=== PATIENT | female | born 1990 | race Caucasian/White ===

== ENCOUNTER 2019-08-23 23:45 | Inpatient (IN) | payer MEDICAID, BC ==
[~2019-08-23] VITALS: Ht 165.1 cm; Wt 127.0 kg
[2019-08-23] MEDS ORDERED: PREN-196 PO (23:59)
[2019-08-24] MEDS ORDERED: LACTATED RINGERS 1000ML 1,000 ML IV SCH
[2019-08-24] MEDS ORDERED: LACTATED RINGERS 1000ML 1,000 ML IV PRN (00:31)
[2019-08-24 00:35] LABS: APPEARANCE,URINE Cloudy (CLEAR); BILIRUBIN,URINE Negative (NEGATIVE); COLOR,URINE Yellow (YELLOW); GLUCOSE, URINE (UA) Negative (NEGATIVE); KETONES,URINE Negative (NEGATIVE); LEUKOCYTE ESTERASE ,URINE Large (NEGATIVE); NITRATE,URINE Negative (NEGATIVE); OCCULT BLOOD,URINE Large (NEGATIVE); PH,URINE 6.5 (5.0-8.0); PROTEIN,URINE Trace mg/dL (NEGATIVE)
[2019-08-24 00:42] LABS: HEMATOCRIT 30.9 % (36-48); MEAN CORPUSCULAR HGB CONC 34.3 g/dL (32.0-36.0); MEAN CORPUSCULAR VOLUME 87.5 fL (79-99); RED BLOOD CELL COUNT(AUTO) 3.53 MIL/uL (4.00-5.50); RED CELL DISTRIBUTION WIDTH 12.8 % (11.0-15.5); WHITE BLOOD COUNT (AUTO) 18.4 K/uL (4.8-10.8)
[2019-08-24] MEDS ORDERED: OXYTOCIN-LR 20 UNITS/1000 ML 1,000 ML IV SCH (00:45)
[2019-08-24 00:46] LABS: BACTERIA,URINE Moderate /HPF (None Seen); MUCUS,URINE Few LPF (None Seen); SQUAMOUS EPITHELIAL CELL,UR Few /HPF (0-2); WBC,URINE 51-100 /HPF (0-1)
[2019-08-24 00:46] LABS: AMPHET/METH SCREEN,URINE NEGATIVE (NEGATIVE); BARBITURATE SCREEN, URINE NEGATIVE (NEGATIVE); BENZODIAZEPINES SCREEN,URINE NEGATIVE (NEGATIVE); CANNABINOID SCREEN,URINE NEGATIVE (NEGATIVE); COCAINE SCREEN,URINE NEGATIVE (NEGATIVE); OPIATE SCREEN,URINE NEGATIVE (NEGATIVE); PHENCYCLIDINE SCREEN,URINE NEGATIVE (NEGATIVE)
[2019-08-24] MEDS ORDERED: AMPICILLIN 2GM+NS 100ML 100 ML IV ONE (01:05)
[2019-08-24] MEDS ORDERED: AMPICILLIN 2GM+NS 100ML 100 ML IV SCH (01:15)
[2019-08-24] MEDS ORDERED: LACTATED RINGERS 500 ML 500 ML IV PRN (01:15)
[2019-08-24] MEDS ORDERED: ROPIVACAINE 0.2% 100ML VIAL 100 ML EP SCH (01:15)
[2019-08-24] MEDS ORDERED: NALOXONE HCL 0.4 MG/1 ML ML IV PRN (01:15)
[2019-08-24] MEDS ORDERED: EPHEDRINE SULFATE 50 MG/ML AMPULE IVP PRN (01:15)
[2019-08-24 01:43] LABS: RED BLOOD CELL COUNT(AUTO) 3.53 MIL/uL (4.00-5.50); WHITE BLOOD COUNT (AUTO) 18.4 K/uL (4.8-10.8)
[2019-08-24 01:44] LABS: BASOPHILS % (AUTO) 0.1 % (0.0-5.0); EOSINOPHILS % (AUTO) 0.1 % (0.0-8.0); HEMATOCRIT 30.9 % (36-48); LYMPHOCYTES % (AUTO) 8.4 % (21.0-51.0); MEAN CORPUSCULAR HGB CONC 34.3 g/dL (32.0-36.0); MEAN CORPUSCULAR VOLUME 87.5 fL (79-99); MONOCYTES % (AUTO) 7.3 % (3.0-13.0); NEUTROPHILS % (AUTO) 83.5 % (40.0-77.0); PLATELET COUNT (AUTO) 196 K/uL (130-400); RED CELL DISTRIBUTION WIDTH 12.8 % (11.0-15.5)
[2019-08-24 02:00] VITALS: BP 120/88
[2019-08-24] MEDS ORDERED: CEFTRIAXONE SODIUM 1 GM ONE (02:03)
[2019-08-24] MEDS ORDERED: FENTANYL CITRATE PF 50 MCG/1 ML 2ML VIAL ONE (02:06)
[2019-08-24] MEDS ORDERED: AMMONIA 1 EA AMP IH ONE (05:14)
[2019-08-24 06:51] VITALS: BP 124/66
[2019-08-24] MEDS ORDERED: MEASLES/MUMPS/RUBELLA VACCINE, LIVE 0.5 ML/VIAL SQ PRN (07:30)
[2019-08-24] MEDS ORDERED: DIPH,PERTUSS(ACELL),TET VAC/PF 0.5 ML VIAL IM PRN (07:30)
[2019-08-24] MEDS ORDERED: WITCH HAZEL 1 PAD TP PRN (07:30)
[2019-08-24] MEDS ORDERED: ACETAMINOPHEN-CODEINE 300/30MG TAB PO PRN (07:30)
[2019-08-24] MEDS ORDERED: BENZOCAINE/LANOLIN/ALOE VERA 60 ML AEROSOL TP PRN (07:30)
[2019-08-24] MEDS ORDERED: LANOLIN 30GM OINTMENT TP PRN (07:30)
[2019-08-24] MEDS ORDERED: ACETAMINOPHEN 325 MG TAB PO PRN (07:30)
[2019-08-24] MEDS: DOCUSATE SODIUM 100 MG CAP PO SCH (08:59)
[2019-08-24 10:04] LABS: RAPID PLASMA REAGIN NONREACTIVE (NONREACTIVE)
[2019-08-24 10:35] VITALS: BP 103/50
[2019-08-24] MEDS: IBUPROFEN 600 MG TABLET PO PRN (12:43)
[2019-08-24 16:28] VITALS: BP 94/55
[2019-08-24 19:44] VITALS: BP 99/55
[2019-08-24 23:38] VITALS: BP 114/51
[2019-08-25 03:04] VITALS: BP 92/50
[2019-08-25 07:02] LABS: HEMATOCRIT 28.1 % (36-48); MEAN CORPUSCULAR HEMOGLOBIN 29.1 pg (27.0-33.0); MEAN CORPUSCULAR HGB CONC 33.1 g/dL (32.0-36.0); MEAN CORPUSCULAR VOLUME 87.8 fL (79-99); RED BLOOD CELL COUNT(AUTO) 3.2 MIL/uL (4.00-5.50); RED CELL DISTRIBUTION WIDTH 12.9 % (11.0-15.5); WHITE BLOOD COUNT (AUTO) 15.2 K/uL (4.8-10.8)
[2019-08-25 07:40] VITALS: BP 103/57
[2019-08-25] MEDS: IBUPROFEN 600 MG TABLET PO PRN (09:24)
[2019-08-25] MEDS: DOCUSATE SODIUM 100 MG CAP PO SCH ×2 (09:24→21:00)
[2019-08-25 10:10] LABS: HEPATITIS Bs ANTIGEN SCREEN P Negative (Negative)
[2019-08-25 11:41] VITALS: BP 93/53
[2019-08-25 16:06] VITALS: BP 100/52
[2019-08-25 19:36] VITALS: BP 103/66
[2019-08-25] MEDS: AMPICILLIN 1GM+NS 50ML 50 ML IV SCH (21:15)
[2019-08-26 00:18] VITALS: BP 108/56
[2019-08-26 03:43] VITALS: BP 109/57
[2019-08-26] MEDS: AMPICILLIN 1GM+NS 50ML 50 ML IV SCH (05:15)
[2019-08-26 07:23] VITALS: BP 127/59
--- NOTE | 2019-08-26 10:16 | NUR ---
VERN met with pt who is upset and emotional that baby will not be released today as planned. Pt is from [place] and is currently breast feeding baby. Because of covid 19 restrictions, left after and has not been allowed into hospital again. Pt not wanting to leave without baby. Mother provided emotional support. Mother informed that unfortunately with covid restrictions, [facility] has not re opened to assist families in her situation. VERN spoke to Dr Salazar and informed that pt upset and there are no placement options at this time for her to remain near baby. Dr Salazar has spoken to Cherelle, Director and she is speaking to Admin.
--- NOTE | 2019-08-26 18:15 | NUR ---
PATIENT LEFT UNIT VIA WHEELCHAIR WITH OSWALDO IN ARMS. BABY SECURE IN CARSEAT IN PERSONAL VEHICLE. NO COMPLAINTS OR CONCERNS ADDRESSED FROM PATIENT ON DISCHARGE.
== END 2019-08-26 18:15 | disposition home or self-care (01) | DRG 807 ==
LOC: EDH 23:45 → LDH 23:46 → OBSVTOIN 23:46 → WSH 08-24 06:27
PROVIDERS: ADMIT Specialist; ATTEND Specialist
PROC: 10E0XZZ Delivery of Products of Conception, External Approach (ICD-10-PCS; principal; 2019-08-24)
PROC: 0HQ9XZZ Repair Perineum Skin, External Approach (ICD-10-PCS; 2019-08-24)
PROC: 3E0R3BZ Introduction of Anesthetic Agent into Spinal Canal, Percutaneous Approach (ICD-10-PCS; 2019-08-24)
PROC: 00HU33Z Insertion of Infusion Device into Spinal Canal, Percutaneous Approach (ICD-10-PCS; 2019-08-24)
PROC: 3E0234Z Introduction of Serum, Toxoid and Vaccine into Muscle, Percutaneous Approach (ICD-10-PCS; 2019-08-24)
PROC: 3E0134Z Introduction of Serum, Toxoid and Vaccine into Subcutaneous Tissue, Percutaneous Approach (ICD-10-PCS; 2019-08-24)
DX: O99.214 Obesity complicating childbirth (principal); Z37.0 Single live birth; E66.9 Obesity, unspecified; O70.0 First degree perineal laceration during delivery; Z23 Encounter for immunization; Z3A.39 39 weeks gestation of pregnancy
CPT/HCPCS: 36415; 80305; 81001; 85025; 85027; 86592; 86701; 86850; 86900; 86901; 87088; 87340; 87390; A4314; G0378; J0290; J0696; J2590; J3010; J3490; J7120